=== PATIENT | male | born 1945 | race Caucasian/White ===

== ENCOUNTER 2020-02-09 11:57 | Inpatient (IN) | payer OTHER ==
[~2020-02-09] VITALS: Ht 160 cm; Wt 81.6 kg
[2020-02-09 13:02] LABS: HEMATOCRIT. 32.7 % (42.0-52.0); MEAN CORPUSCULAR HEMOGLOBIN 27.8 pg (28.0-32.0); MEAN CORPUSCULAR VOLUME 82.6 fL (80.0-94.0); MEAN PLATELET VOLUME 7.3 fl (7.4-10.4); PLATELET 339 x1000/uL (130-400); RED BLOOD CELL COUNT 3.96 mill/uL (4.7-6.1); RED CELL DISTRIBUTION WIDTH 18.3 % (11.6-14.6)
[2020-02-09 13:09] LABS: CHLORIDE 96 mEq/L (98-107)
[2020-02-09 13:18] LABS: INR 2.3; PROTHROMBIN TIME 23.6 sec (9.6-11.0)
[2020-02-09 13:44] LABS: PLATELET ESTIMATE NORMAL
[2020-02-09] MEDS ORDERED: DEXTROSE 50% WATER 50ML SYRINGE IV PRN (14:15)
[2020-02-09] MEDS ORDERED: ACETAMINOPHEN 325MG TABLET PO PRN (14:15)
[2020-02-09] MEDS ORDERED: ONDANSETRON HCL 4MG/2ML INJ IV PRN (14:15)
[2020-02-09] MEDS ORDERED: MORPHINE SULFATE 2 MG/ML CPJ (NOT FOR IM USE) IV PRN (14:15)
[2020-02-09] MEDS ORDERED: MORPHINE SULFATE 4 MG/ML CPJ (NOT FOR IM USE) IV PRN (14:15)
[2020-02-09] MEDS ORDERED: TRAZODONE HCL 50MG TABLET PO PRN (14:15)
[2020-02-09] MEDS ORDERED: VANCOMYCIN 1 G PREMIX 200 ML IV SCH (15:30)
[2020-02-09] MEDS ORDERED: WARFARIN SODIUM 5MG TABLET PO SCH (18:00)
[2020-02-09] MEDS: PIPERACILLIN/TAZ 3.375G PREMIX 50 ML IV SCH ×2 (19:30→21:00)
[2020-02-09] MEDS ORDERED: HEPARIN 5000 UNITS/ML VIAL SUBCUT SCH (21:00)
[2020-02-09] MEDS: SODIUM CHLORIDE 0.9% 1,000 ML IV SCH (22:00)
[2020-02-09] MEDS ORDERED: IOHEXOL-300 100 ML BOTTLE ONE (23:38)
[2020-02-09] MEDS ORDERED: IOHEXOL-350 100 ML BOTTLE ONE (23:38)
[2020-02-10] MEDS: SODIUM CHLORIDE 0.9% 1,000 ML IV SCH ×2 (02:45→16:21)
[2020-02-10 05:57] LABS: HEMATOCRIT. 31.7 % (42.0-52.0); HEMOGLOBIN. 10.6 g/dL (14.0-18.0); MEAN CORPUSCULAR HEMOGLOBIN 27.6 pg (28.0-32.0); MEAN CORPUSCULAR VOLUME 82.4 fL (80.0-94.0); MEAN PLATELET VOLUME 7.5 fl (7.4-10.4); PLATELET 318 x1000/uL (130-400); RED BLOOD CELL COUNT 3.85 mill/uL (4.7-6.1); RED CELL DISTRIBUTION WIDTH 18.4 % (11.6-14.6)
[2020-02-10 06:03] LABS: INR 1.8; PROTHROMBIN TIME 18.8 sec (9.6-11.0)
[2020-02-10 06:06] LABS: CHLORIDE 97 mEq/L (98-107)
[2020-02-10] MEDS: BLOOD SUGAR DIAGNOSTIC STRIP TEST SCH ×3 (06:42→21:53)
[2020-02-10] MEDS: ATENOLOL 25MG TABLET PO SCH ×3 (06:47→17:14)
[2020-02-10] MEDS: INSULIN LISPRO 100 UNITS/ML SUBCUT SCH ×3 (07:00→21:52)
[2020-02-10 07:26] LABS: PLATELET ESTIMATE NORMAL
[2020-02-10] MEDS: PIPERACILLIN/TAZ 3.375G PREMIX 50 ML IV SCH (09:58)
[2020-02-10 12:00] VITALS: BP 131/72
[2020-02-10] MEDS ORDERED: HYDR-4001 PO (14:05)
[2020-02-10] MEDS ORDERED: CRES10 PO (14:05)
[2020-02-10] MEDS ORDERED: METF-414 PO ×2 (14:05)
[2020-02-10] MEDS ORDERED: ATEN-42 PO (14:05)
[2020-02-10] MEDS ORDERED: NIAC-9 PO (14:05)
[2020-02-10] MEDS ORDERED: TURM500C6 PO (14:05)
[2020-02-10] MEDS ORDERED: FINA5TAB3 PO (14:05)
[2020-02-10 14:08] VITALS: BP 131/72
[2020-02-10] MEDS ORDERED: VANCOMYCIN 1 G PREMIX 200 ML IV SCH (15:00)
[2020-02-10] MEDS ORDERED: TRAMADOL 50MG TABLET PO PRN (15:45)
[2020-02-10] MEDS ORDERED: HYDROCODONE/ACETAMINOPHEN 5/325MG TABLET PO PRN (15:45)
[2020-02-10 16:00] VITALS: BP 142/55
[2020-02-10 16:07] LABS: CLARITY URINE CLEAR (CLEAR); COLOR URINE YELLOW (YELLOW); KETONES URINE NEGATIVE (NEGATIVE); LEUKOCYTE ESTERASE URINE 2+ (NEGATIVE); NITRITE URINE NEGATIVE (NEGATIVE); OCCULT BLOOD URINE 1+ (NEGATIVE); PH URINE 5.5 (4.5-8.0); PROTEIN URINE 1+ (NEGATIVE); SPECIFIC GRAVITY URINE 1.031 (1.005-1.030)
[2020-02-10] MEDS: VANCOMYCIN 1 G PREMIX 200 ML IV SCH (16:21)
[2020-02-10] MEDS: INSULIN GLARGINE UD 100 UNITS/ML SYR SUBCUT SCH (16:24)
[2020-02-10] MEDS: PIPERACILLIN/TAZOBACTAM 3.375 G in DEXT 5% WATER 100 ML IV SCH ×2 (17:13→23:17)
[2020-02-10 20:00] VITALS: BP 124/69
[2020-02-10] MEDS ORDERED: WARFARIN SODIUM 7.5MG TABLET PO SCH (21:00)
[2020-02-11] VITALS: BP 121/65
[2020-02-11] MEDS: SODIUM CHLORIDE 0.9% 1,000 ML IV SCH ×2 (03:45→17:01)
[2020-02-11 04:00] VITALS: BP 128/72
[2020-02-11] MEDS: PIPERACILLIN/TAZOBACTAM 3.375 G in DEXT 5% WATER 100 ML IV SCH ×3 (05:29→17:01)
[2020-02-11 06:03] LABS: INR 2.7; PROTHROMBIN TIME 26.8 sec (9.6-11.0)
[2020-02-11] MEDS: BLOOD SUGAR DIAGNOSTIC STRIP TEST SCH ×3 (06:18→16:39)
[2020-02-11 06:22] LABS: BASOPHILS % 0.2 % (0.0-2.0); CHLORIDE 99 mEq/L (98-107); EOSINOPHILS % 0.5 % (0.0-5.0); HEMOGLOBIN. 10.9 g/dL (14.0-18.0); LYMPHOCYTES % 8.2 % (20.0-50.0); MEAN CORPUSCULAR HEMOGLOBIN 26.6 pg (28.0-32.0); MEAN CORPUSCULAR VOLUME 83.2 fL (80.0-94.0); MEAN PLATELET VOLUME 7.9 fl (7.4-10.4); MONOCYTES % 7.2 % (2.0-8.0); NEUTROPHILS % 83.9 % (40.0-76.0); PLATELET 319 x1000/uL (130-400); RED BLOOD CELL COUNT 4.09 mill/uL (4.7-6.1); RED CELL DISTRIBUTION WIDTH 18.7 % (11.6-14.6)
[2020-02-11] MEDS: INSULIN LISPRO 100 UNITS/ML SUBCUT SCH ×3 (07:20→17:15)
[2020-02-11 08:00] VITALS: BP 135/71
[2020-02-11 08:07] LABS: HIV SCREEN 4G Non Reactive (Non Reactive)
[2020-02-11] MEDS: VANCOMYCIN 1 G PREMIX 200 ML IV SCH (10:05)
[2020-02-11] MEDS: ATENOLOL 25MG TABLET PO SCH ×2 (10:06→17:02)
[2020-02-11] MEDS: INSULIN GLARGINE UD 100 UNITS/ML SYR SUBCUT SCH (10:47)
[2020-02-11 12:00] VITALS: BP 119/64
[2020-02-11 14:18] VITALS: BP 119/64
[2020-02-11] MEDS ORDERED: HYDR-4001 PO (14:47)
[2020-02-11 16:00] VITALS: BP 130/62
[2020-02-11] MEDS ORDERED: WARFARIN SODIUM 5MG TABLET PO SCH (18:00)
== END 2020-02-11 18:15 | disposition home or self-care (01) | DRG 871 ==
LOC: ER 12:16 → 5WST 14:02 → EDBEDREQ 14:06 → EDBEDREQTM 14:06 → ENRESERV 02-10 10:42 → ER 02-10 11:11
PROVIDERS: ADMIT Family Medicine Adult Medicine; ATTEND Family Medicine Adult Medicine
DX: A41.9 Sepsis, unspecified organism (principal); E43 Unspecified severe protein-calorie malnutrition; C22.9 Malignant neoplasm of liver, not specified as primary or secondary; C79.51 Secondary malignant neoplasm of bone; G45.9 Transient cerebral ischemic attack, unspecified; D68.9 Coagulation defect, unspecified; E87.1 Hypo-osmolality and hyponatremia; I31.3 Pericardial effusion (noninflammatory); I48.19 Other persistent atrial fibrillation; D68.59 Other primary thrombophilia; D64.9 Anemia, unspecified; I45.10 Unspecified right bundle-branch block; E11.65 Type 2 diabetes mellitus with hyperglycemia; E87.8 Other disorders of electrolyte and fluid balance, not elsewhere classified; F10.10 Alcohol abuse, uncomplicated; R56.9 Unspecified convulsions; I10 Essential (primary) hypertension; I25.2 Old myocardial infarction; Z79.01 Long term (current) use of anticoagulants; Z79.4 Long term (current) use of insulin; Z79.899 Other long term (current) drug therapy; Z85.05 Personal history of malignant neoplasm of liver
CPT/HCPCS: 36415; 70496; 70498; 70551; 71045; 74177; 80048; 80053; 80076; 81003; 82105; 82140; 82962; 83036; 83605; 83615; 83735; 84443; 84484; 85025; 85651; 86140; 87389; 87426; 93005; 93306; 99285; J1815; J2543; J3370; J7060; Q9967